=== PATIENT | male | born 1985 | race Hispanic/Latino ===

== ENCOUNTER 2017-09-14 13:32 | Emergency (ER) | payer SELFPAY ==
[2017-09-14 13:59] VITALS: RESP 16; TEMP 98.1; O2SAT 98
--- NOTE | 2017-09-14 14:40 | C.PDOC ---
History Of Present Illness 32 year old male presents to the ED c/o exacerbation of headache since yesterday. Patient states headache is left-sided and lasts longer than usual. Patient states he gets this headache once per month, symptoms are normally relieved with Advil. Patient has not taken any medicine today. Patient denies fever, photophobia, nausea, vomiting or associated symptoms. EXAC HARTMANN SINCE YEST. L SIDED. LASTING LONGER THAN USUAL. PS GETS HARTMANN ONCE PER MONTH. NORMALLY RELIEVED W ADVIL. NO MEDS TRIED TODAY. NO FEVER, PHOTOPHOBIA, NV OTHER ASSOC SX EXAM HEENT NO PHOTOPHOBIA NO FACIAL TEND NECK SUPPLE NEURO INTACT REMAINDER NEG NAD MDM PT REFUSING MEDS. Time Seen by Provider: 09/14/17 14:29 Chief Complaint (Nursing): Headache History Per: Patient History/Exam Limitations: no limitations Onset/Duration Of Symptoms: Hrs Current Symptoms Are (Timing): Still Present Quality: Aching Associated Symptoms: denies: Photophobia, Nausea, Vomiting Additional History Per: Patient Past Medical History Reviewed: Historical Data, Nursing Documentation, Vital Signs Vital Signs: Last Vital Signs Temp 98.1 F 09/14/17 13:55 Pulse 81 09/14/17 15:12 Resp 16 09/14/17 15:12 BP 134/85 09/14/17 15:12 Pulse Ox 98 09/14/17 15:43 - Medical History PMH: No Chronic Diseases Surgical History: No Surg Hx - [facility] Procedures NEBULIZER THERAPY (08/05/07) Family History: States: Unknown Family Hx - Social History Hx Alcohol Use: No Hx Substance Use: No - Immunization History Hx Tetanus Toxoid Vaccination: No Hx Influenza Vaccination: No Hx Pneumococcal Vaccination: No Review Of Systems Constitutional: Negative for: Fever Eyes: Negative for: Other (photophobia ) Gastrointestinal: Negative for: Nausea, Vomiting Neurological: Positive for: Headache Physical Exam - Physical Exam Appears: Non-toxic, No Acute Distress Skin: Normal Color, Warm, Dry Head: Atraumatic, Normacephalic, No Tenderness (facial ) Eye(s): bilateral: Normal Inspection, PERRL, EOMI, Other (no photophobia ) Oral Mucosa: Moist Neck: Supple Chest: Symmetrical, No Deformity, No Tenderness Cardiovascular: Rhythm Regular, No Murmur Respiratory: Normal Breath Sounds, No Rales, No Rhonchi, No Wheezing Extremity: Normal ROM, Capillary Refill (less than 2 seconds ) Neurological/Psych: Oriented x3, Normal Speech, Normal Cognition Gait: Steady ED Course And Treatment O2 Sat by Pulse Oximetry: 98 (on RA) Pulse Ox Interpretation: Normal Medical Decision Making Medical Decision Making: Patient is refusing pain medication at this time. Disposition Counseled Patient/Family Regarding: Diagnosis, Need For Followup - Disposition Referrals: [facility] [Outside] [facility] [Outside] Disposition: HOME/ ROUTINE Disposition Time: 14:39 Condition: GOOD Additional Instructions: TAKE MOTRIN/TYLENOL DIRECTED FOR PAIN NEEDED Instructions: Tension Headache (ED) Forms: ROVOP (Latvian) - Clinical Impression Clinical Impression: Headache - Scribe Statement The provider has reviewed the documentation as recorded by the Scribe (Vita Olguin) Provider Attestation: All medical record entries made by the Scribe were at my direction and personally dictated by me. I have reviewed the chart and agree that the record accurately reflects my personal performance of the history, physical exam, medical decision making, and the department course for this patient. I have also personally directed, reviewed, and agree with the discharge instructions and disposition.
[2017-09-14 15:13] VITALS: BP 134/85; PULSE 81
== END 2017-09-14 15:12 | disposition home or self-care (01) ==
LOC: C.ER 13:32
DX: R51 Headache (principal)